=== PATIENT | female | born 1970 | race African-American/Black ===

== ENCOUNTER 2017-08-26 08:57 | Emergency (ER) | payer BC ==
[2017-08-26 09:08] VITALS: BP 139/73
--- NOTE | 2017-08-26 09:33 | ER Document Report ---
HPI - HPI Pain Level: 3 Notes: Patient is a 47-year-old female no significant past medical history who presents to the ED complaining of a possible insect bite to her fourth lateral toe about 1.5 hours ago. Patient states that she was outside with her flip flops when she felt a bite to her toe. Patient states that she does not have any soreness or pain in the right now and is able to ambulate without difficulties. She has not noticed any red streaks or purulent discharge. Patient states that she did not see any snake near her vicinity in the yard. Patient states that her grass is mowed. Denies any drug allergies. No other concerns or complaints. Denies any headache, fever, neck pain, URI, sore throat , chest pain, palpitations, syncope, cough, shortness of breath, wheeze, dyspnea , abdominal pain, nausea/vomiting/diarrhea, urinary retention, dysuria, hematuria, numbness/tingling, muscle paralysis/weakness, or rash. - ROS Systems Reviewed and Negative: Yes All other systems reviewed and negative Past Medical History - Social History Smoking Status: Never Smoker Family History: Reviewed & Not Pertinent Vertical Provider Document - CONSTITUTIONAL Agree With Documented VS: Yes Notes: PHYSICAL EXAMINATION: GENERAL: Well-appearing, well-nourished and in no acute distress. LUNGS: Breath sounds clear to auscultation bilaterally and equal. No wheezes rales or rhonchi. HEART: Regular rate and rhythm without murmurs, rubs, gallops. Musculoskeletal: Left toes: FROM to passive/active. Strength 5+/5. N/V intact distal. Compartments are soft. No foot drop. Extremities: No cyanosis, clubbing, or edema b/l. Peripheral pulses 2+. Capillary refill less than 3 seconds. NEUROLOGICAL: Cranial nerves grossly intact. Normal speech, normal gait. Normal sensory, motor exams PSYCH: Normal mood, normal affect. SKIN: Lt 4th lateral toe: There is 2mm of erythema that blanches with palpation. The tissue is soft and not indurated. There is no fluctuance or tenderness to palpation. No streaks, abscess, or purulence. There are no fang tobin and not obvious point of entry noted. No necrotic tissue. - INFECTION CONTROL TRAVEL OUTSIDE OF THE [place] IN LAST 30 DAYS: No Course - Re-evaluation Re-evalutation: 08/26/17 09:30 Patient is an afebrile, well-hydrated, 47-year-old female who presents to the ED with an insect bite to her left fourth lateral toe. Vitals are acceptable without any significant tachycardia, tachypnea, or hypoxia. PE is otherwise unremarkable for any neurovascular compromise, obvious tendon/ligament rupture, obvious fracture/dislocation, septic joint, snakebite. No incision and drainage , labs, or imaging warranted at this time based on H&P. Patient is nontoxic- appearing. The area was nontender to palpation and without any necrotic tissue or fluctuance/induration. Advised patient that she needs to monitor her symptoms very closely for any changes and seek medical attention if so. Conservative measures otherwise for symptoms. Recheck with your PCM in 2-3 days. Return to the ED with any worsening/concerning symptoms otherwise as reviewed in discharge. Patient is in agreement. - Vital Signs Vital signs: Temp Pulse Resp BP Pulse Ox 98.7 F 86 16 139/73 H 99 08/26/17 09:05 08/26/17 09:05 08/26/17 09:05 08/26/17 09:05 08/26/17 09:05 Discharge - Discharge Clinical Impression: Insect bite Qualifiers: Encounter type: initial encounter Qualified Code(s): W57.XXXA - Bitten or stung by nonvenomous insect and other nonvenomous arthropods, initial encounter Condition: Stable Disposition: HOME, SELF-CARE Instructions: Insect Bites ([facility]) Additional Instructions: Keep the skin clean Wash with soap and water Tylenol/ibuprofen if needed Triple antibiotic ointment daily Take medication as directed Epsom salt soaks Benadryl cream may help Monitor for any worsening symptoms Recheck with your PCM in 2-3 days Return to the ED with any worsening symptoms and/or development of fever, headache, chest pain, palpitations, syncope, shortness of breath, trouble breathing, abdominal pain, n/v/d, abscess, purulent discharge, red streaks, worsening swelling, or other worsening symptoms that are concerning to you. Forms: Elevated Blood Pressure Referrals: [facility] [Provider Group] - Follow up as needed [facility] [Provider Group] - Follow up as needed
== END 2017-08-26 09:35 | disposition home or self-care (01) ==
LOC: ER 08:57
DX: S90.465A Insect bite (nonvenomous), left lesser toe(s), initial encounter (principal); W57.XXXA Bitten or stung by nonvenomous insect and other nonvenomous arthropods, initial encounter
CPT/HCPCS: 99281

== ENCOUNTER 2019-10-04 20:11 | Emergency (ER) | payer BC ==
[2019-10-04] MEDS ORDERED: ACETAMINOPHEN 325 MG TABLET PO ONE (21:26)
[2019-10-04] MEDS ORDERED: NORMAL SALINE 1000 ML 1,000 ML IV ONE (21:26)
--- NOTE | 2019-10-04 21:31 | ER Document Report ---
ED General - General Chief Complaint: Cough Stated Complaint: FEVER,BODY ACHES,CONGESTION,DIFFICULTY BREATHING Time Seen by Provider: 10/04/19 21:08 Primary Care Provider: CRISTAL HERNANDEZ MD [Primary Care Provider] - Follow up as needed Notes: Patient is a 49-year-old female who comes emergency department for chief complaint of 2 days of feeling feverish, chills, and worsening cough. She denies difficulty breathing, chest pain, headache, abdominal pain, nausea, vomiting, diarrhea. Patient was exposed to her aunt who works in a retirement and who tested positive for COVID-19. Patient has a history of hypertension, denies history of asthma, denies smoking history, denies any other medical history. TRAVEL OUTSIDE OF THE [place] IN LAST 30 DAYS: No - Related Data Allergies/Adverse Reactions: No Known Allergies Allergy (Verified 10/04/19 21:07) Home Medications: mohan Hctz Past Medical History - General Information source: Patient - Social History Smoking Status: Never Smoker Chew tobacco use (# tins/day): No Frequency of alcohol use: None Drug Abuse: None Lives with: Family Family History: Reviewed & Not Pertinent - Past Medical History Cardiac Medical History: Reports: Hx Hypertension Renal/ Medical History: Denies: Hx Peritoneal Dialysis Surgical Hx: Negative - Immunizations Immunizations up to date: Yes Hx Diphtheria, Pertussis, Tetanus Vaccination: Yes Review of Systems - Review of Systems Constitutional: See HPI EENT: No symptoms reported Cardiovascular: No symptoms reported Respiratory: See HPI Gastrointestinal: No symptoms reported Genitourinary: No symptoms reported Female Genitourinary: No symptoms reported Musculoskeletal: No symptoms reported Skin: No symptoms reported Hematologic/Lymphatic: No symptoms reported Neurological/Psychological: No symptoms reported Physical Exam - Vital signs Vitals: Temp Pulse Resp BP Pulse Ox 101.4 F H 104 H 16 122/84 97 10/04/19 21:16 10/04/19 21:16 10/04/19 21:16 10/04/19 21:16 10/04/19 21:16 - Notes Notes: GENERAL: Alert, interacts well. No acute distress. Talkative and well-appearing HEAD: Normocephalic, atraumatic. EYES: Pupils equal, round, and reactive to light. Extraocular movements intact. ENT: Oral mucosa moist, tongue midline. Oropharynx unremarkable. Airway patent. NECK: Full range of motion. Supple. Trachea midline. No lymphadenopathy. LUNGS: Clear to auscultation bilaterally, no wheezes, rales, or rhonchi. No respiratory distress. Non-tender chest wall. HEART: Borderline tachycardic, normal rhythm, no murmur ABDOMEN: Soft, non-tender. Non-distended. Bowel sounds present in all 4 qu adrants. GENITOURINARY: Deferred EXTREMITIES: Moves all 4 extremities spontaneously. No edema, normal radial and dorsalis pedis pulses bilaterally. No cyanosis. BACK: no cervical, thoracic, lumbar midline tenderness. No saddle anesthesia, normal distal neurovascular exam. Moves all extremities in full range of motion. NEUROLOGICAL: Alert and oriented x3. Normal speech. Cranial nerves II through XI I grossly intact. Strength 5/5 in all extremities. PSYCH: Normal affect, normal mood. SKIN: Warm, dry, normal turgor. No rashes or lesions noted. Course - Re-evaluation Re-evalutation: Patient initially noted to be febrile with borderline tachycardia, however she is smiling, talkative, well-appearing. She is nontoxic on exam. Lungs clear, abdomen soft, ENT exam unremarkable. After treatment of fever and with IV fluids patient states he feels great. She has no current complaints. Chest x-ray unremarkable, CBC and chemistry nonspecific except for hypokalemia of 3.8. Magnesium checked and is within normal range. EKG checked and QTC is less than 500. I discussed with patient. Most likely hypokalemia is from her hydrochlorothiazide, she was given potassium here and she will be placed on potassium prescription, patient is requesting COVID-19 testing and discharge. She will have her potassium closely rechecked with primary care. Discussed return precautions in detail. Patient states appreciation and agreement. Stable, well-appearing, asymptomatic at time of discharge. - Vital Signs Vital signs: Temp Pulse Resp BP Pulse Ox 98.3 F 77 17 108/77 95 10/05/19 00:15 10/05/19 00:15 10/05/19 00:15 10/05/19 00:15 10/05/19 00:15 - Laboratory Result Diagrams: 10/04/19 21:57 10/04/19 21:57 Laboratory results interpreted by me: 10/04/19 10/04/19 10/04/19 21:57 21:57 21:57 RDW 14.5 H Sodium 134.9 L Potassium 3.0 L* Est GFR (MDRD) Non-Af 58 L Glucose 148 H AST 38 H Urine Ketones TRACE H Urine Ascorbic Acid 40 H - EKG Interpretation by Me Additional EKG results interpreted by me: EKG shows sinus rhythm at a rate of 82, mild left axis deviation, QTC of 491. No T wave inversions or ST segment changes in consecutive leads. Discharge - Discharge Clinical Impression: Cough, Hypokalemia, Person under investigation for COVID-19 Fever Qualifiers: Fever type: unspecified Qualified Code(s): R50.9 - Fever, unspecified Condition: Stable Disposition: HOME, SELF-CARE Additional Instructions: Your laboratory work-up shows low potassium but otherwise no concerning findin gs. Your chest x-ray does not show any concerning findings. Based on your exposure and your symptoms you most likely have COVID-19. You have been tested for this, please quarantine yourself, you will be contacted with the results after couple of days, you will be given additional instructions at that time. I recommend that you treat plenty fluids, rest, take [id number] medication such as Tylenol and ibuprofen for fever and body aches. Symptoms should simply resolve. Take the potassium supplement as prescribed, this is most likely low because of your hydrochlorothiazide, please call your primary care provider on Sunday to schedule having this rechecked and for additional adjustments. Return if you worsen including rapid or labored breathing, chest pain, vomiting, passing out, or any other concerning or worsening symptoms. As a person under investigation for COVID-19, the [place] Department of Health and Human Services (division on public health) advises you to adhere to the following guidance until your test results are reported to you. If your test result is positive, you will receive additional information from your provider and your local health department at that time. Remain at home until you are cleared by the health provider or public health authorities. Keep a log of visitors to your home, notify any visitors to your home of your isolation status. If you plan to move to a new address or leave the [facility], notify the local [facility] department in your County. Call your Doctor or seek care if you have an urgent medical need. Before seeking medical care, call him to get instructions from the provider before arriving at the medical office, clinic, or hospital. Notify them that you are being tested for the virus (COVID-19) so that arrangements can be made, as necessary, to prevent transmission to others in the healthcare setting. Next, notify the local health department in your county. If a medical emergency arises and you need to call 911, inform the first responders that you are being tested for the virus that causes COVID-19. Next, notify the local health department in your county. Prescriptions: Potassium Chloride 10 meq PO DAILY 7 Days #7 tablet.er Forms: Return to Work Referrals: CRISTAL HERNANDEZ MD [Primary Care Provider] - Follow up as needed
--- NOTE | 2019-10-04 22:14 | RADIOLOGY REPORT (SQ) ---
EXAM DESCRIPTION: XR CHEST 1 VIEW COMPLETED DATE/TME: 10/04/2019 21:25 CLINICAL HISTORY: 49 years Female productive cough, fever, COVID-19 exposure COMPARISON: None. FINDINGS: The cardiomediastinal silhouette appears unremarkable. No consolidating infiltrates or pleural effusions. No pneumothorax. IMPRESSION: No acute abnormality is identified. No pulmonary opacities identified. Please note that chest radiographs have low sensitivity for subtle groundglass opacities.
[2019-10-04 22:23] LABS: APPEARANCE,URINE CLEAR; BILIRUBIN,URINE NEGATIVE (NEGATIVE); COLOR,URINE YELLOW; GLUCOSE, URINE NEGATIVE (NEGATIVE); KETONES,URINE TRACE mg/dL (NEGATIVE); LEUKOCYTE ESTERASE,URINE NEGATIVE (NEGATIVE); NITRITE,URINE NEGATIVE (NEGATIVE); PROTEIN,URINE NEGATIVE (NEGATIVE); URINE SPECIFIC GRAVITY 1.014; UROBILINOGEN,URINE NEGATIVE mg/dL (<2.0)
[2019-10-04 22:33] LABS: ABSOLUTE LYMPHOCYTES (AUTO) 1.2 10^3/uL (0.5-4.7); ABSOLUTE MONOCYTES (AUTO) 0.4 10^3/uL (0.1-1.4); ABSOLUTE NEUT (AUTO) 5.3 10^3/uL (1.7-8.2); ALBUMIN 4.4 g/dL (3.5-5.0); ALKALINE PHOSPHATASE 87 U/L (38-126); ANION GAP 10 (5-19); ASPARTATE AMINO TRANSFERASE 38 U/L (14-36); BASOPHILS % (AUTO) 0.5 % (0-2); BILIRUBIN,TOTAL 0.6 mg/dL (0.2-1.3); BLOOD UREA NITROGEN 15 mg/dL (7-20); CALCIUM 8.9 mg/dL (8.4-10.2); CARBON DIOXIDE 27 mmol/L (22-30); CHLORIDE 98 mmol/L (98-107); EOSINOPHILS % (AUTO) 0.1 % (0-6); GLUCOSE 148 mg/dL (75-110); HEMATOCRIT 36.7 % (36.0-47.0); HEMOGLOBIN 12.1 g/dL (12.0-15.5); LYMPHOCYTES % (AUTO) 17.2 % (13-45); MEAN CORPUSCULAR HEMOGLOBIN 27.6 pg (27.0-33.4); MEAN CORPUSCULAR VOLUME 83 fl (80-97); MONOCYTES % (AUTO) 5.6 % (3-13); PLATELET COUNT 267 10^3/uL (150-450); RED BLOOD COUNT 4.39 10^6/uL (3.72-5.28); RED CELL DISTRIBUTION WIDTH 14.5 % (11.5-14.0); SEGMENTED NEUTROPHILS % (AUTO) 76.6 % (42-78); TOTAL CELLS COUNTED % (AUTO) 100 %; TOTAL PROTEIN 8.1 g/dL (6.3-8.2); WHITE BLOOD COUNT 6.9 10^3/uL (4.0-10.5)
[2019-10-04] MEDS ORDERED: POTASSIUM CHLORIDE 10 MEQ TABLET.ER PO ONE (23:05)
[2019-10-05 00:18] VITALS: BP 108/77
--- NOTE | 2019-10-05 08:33 | EKG REPORT ---
SEVERITY:- ABNORMAL ECG - SINUS RHYTHM CONSIDER LEFT VENTRICULAR HYPERTROPHY BORDERLINE T ABNORMALITIES, INFERIOR LEADS BORDERLINE PROLONGED QT INTERVAL : Confirmed by: Marc Mcnair MD 05-Oct-2019 08:32:14
== END 2019-10-05 00:18 | disposition home or self-care (01) ==
LOC: ER 20:11
DX: U07.1 COVID-19 (principal); R05 Cough; R50.9 Fever, unspecified; E87.6 Hypokalemia; I10 Essential (primary) hypertension; Z79.899 Other long term (current) drug therapy
CPT/HCPCS: 93005; 99284; 96360; 36415; 87040; 83735; 85025; 87635; 80053; 81001; 71045; 93010; J7030; C9803